=== PATIENT | male | born 1995 | race Caucasian/White ===

== ENCOUNTER 2017-03-27 16:12 | Emergency (ER) | payer OTHER ==
--- NOTE | 2017-03-27 16:57 | RAD ---
INDICATION: Bilateral right greater than left testicular pain. Torsion. COMPARISON: None TECHNIQUE: Duplex interrogation of the scrotum was performed. FINDINGS: Testicles: The testicles are Normal in size and echogenicity. There is no evidence of testicular mass. There is symmetric flow on Doppler interrogation. There is no evidence of torsion.. The right testis measures 5.2 x 2.5 x 3.2 cm and the left 4.9 x 2.1 x 3.1 cm. There is symmetric flow on Doppler interrogation. Epididymides: There is no evidence of an epididymal mass. The epididymides are normal in size. There is symmetric flow on Doppler interrogation. The right epididymal head measures 1.0 x 0.9 cm and the left 1.0 x 1.5 cm. Hydroceles: Small bilateral. Varicoceles: None. Other: None. IMPRESSION: NO EVIDENCE OF TESTICULAR MASS OR TORSION.
[2017-03-27 17:10] LABS: Urine Bilirubin Negative (Negative); Urine Glucose Negative (Negative); Urine Nitrite Negative (Negative)
[2017-03-27] MEDS ORDERED: cefTRIAXone VIAL(*) 250 MG VIAL IM ONE (18:17)
[2017-03-27] MEDS ORDERED: Ketorolac INJ* 60 MG/2 ML VIAL IM ONE (18:17)
[2017-03-27] MEDS ORDERED: Azithromycin TAB* 250 MG PO ONE (18:17)
[2017-03-27 18:33] VITALS: BP 130/69
--- NOTE | 2017-04-13 15:50 | ED ---
Nini More Thomas, scribed for Jimmy Cueto MD on 03/27/17 at 1812 . GI/ HPI - HPI Summary HPI Summary: The pt is a 21 y/o M presenting to the ED c/o testicular pain that began four days ago. The pain is present on both testicles but is greater on the right than the left. The pt rates the pain 4/10. The pain is aggravated by touch and is alleviated by nothing. 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 Pt additionally c/o chills, diarrhea (for a while), lower back pain, and pain on ejaculation. Pt denies fevers, sweats, butt pain, penile drainage, and penile bleeding. He does report new sexual partners recently and he did not use protection. He was tested for STDs with a urine test a week after this new intercourse. The pain felt the worst when he smoked marijuana. PMHx: previously healthy. PSHx: cyst removal. SHx: no smoking, occasional alcohol use, recent marijuana use. - History of Current Complaint Chief Complaint: EDUrogenitalProblems Time Seen by Provider: 03/27/17 18:01 Stated Complaint: TESTICLE PAIN/FROM FIVE STAR Hx Obtained From: Patient Onset/Duration: Started Days Ago - 2, Still Present Timing: Constant Severity: Mild Current Severity: Moderate Pain Intensity: 4 Location of Pain: Other - Testicular pain Associated Signs and Symptoms: Positive: Back Pain - low back pain, Diarrhea - "for a while", Other: - POS: pain on ejaculation, NEG: sweats, butt pain, penile drainage, and penile bleeding. Negative: Fever Additional Signs & Symptoms: Negative: Penile Discharge Aggravating Factor(s): Palpation - as well as marijuana use. Alleviating Factor(s): Nothing - Allergy/Home Medications Allergies/Adverse Reactions: Allergies Allergy/AdvReac Type Severity Reaction Status Date / Time No Known Allergies Allergy Verified 08/29/16 15:33 PMH/Surg Hx/FS Hx/Imm Hx Previously Healthy: Yes Endocrine/Hematology History: Denies: Hx Diabetes Cardiovascular History: Denies: Hx Hypertension, Hx Pacemaker/ICD History: Denies: Hx Dialysis, Hx Renal Disease Sensory History: Denies: Hx Hearing Aid Psychiatric History: Denies: Hx Panic Disorder - Surgical History Surgery Procedure, Year, and Place: CYST REMOVAL LEFT ARM Infectious Disease History: No Infectious Disease History: Denies: Traveled Outside the [place] in Last 30 Days - Family History Known Family History: Positive: Other - POS: kidney stones - Social History Alcohol Use: Occasionally Substance Use Type: Reports: Marijuana Substance Use Comment - Amount & Last Used: weekly Hx Tobacco Use: No Smoking Status (MU): Never Smoked Tobacco Review of Systems Positive: Chills. Negative: Fever, Other - NEG: sweats Negative: Erythema - eyes Negative: Sore Throat Negative: Chest Pain Negative: Shortness Of Breath, Cough Positive: Diarrhea. Negative: Abdominal Pain, Vomiting, Nausea Positive: other - POS: pain on ejactulation; NEG: penile drainage, penile bleeding. Negative: dysuria, hematuria Positive: Other - POS: lower back pain. Negative: Myalgia, Edema - leg Negative: Rash Neurological: Other - NEG: dizziness All Other Systems Reviewed And Are Negative: Yes Physical Exam - Summary Physical Exam Summary: Constitutional: Well-developed, Well-nourished, Alert. (-) Distressed Skin: Warm, Dry HENT: Normocephalic; Atraumatic Eyes: Conjunctiva normal Neck: Musculoskeletal ROM normal neck. (-) JVD, (-) Stridor, (-) Tracheal deviation Cardio: Rhythm regular, rate normal, Heart sounds normal; Intact distal pulses; The pedal pulses are 2+ and symmetric. Radial pulses are 2+ and symmetric. (-) Murmur Pulmonary/Chest wall: Effort normal. (-) Respiratory distress, (-) Wheezes, (-) Rales Abd: Soft, (-) Tenderness, (-) Distension, (-) Guarding, (-) Rebound Musculoskeletal: (-) Edema Lymph: (-) Cervical adenopathy Neuro: Alert, Oriented x3 Psych: Mood and affect Normal Genital: There is a normal scrotum and testes. Nontender to palpation. They have vertical lie. Positive cremasteric reflex is intact. Triage Information Reviewed: Yes Vital Signs On Initial Exam: Initial Vitals Temp Pulse Resp BP Pulse Ox 98.8 F 76 16 135/68 100 03/27/17 16:14 03/27/17 16:14 03/27/17 16:14 03/27/17 16:14 03/27/17 16:14 Vital Signs Reviewed: Yes - [place] Coma Scale Coma Scale Total: 14 Diagnostics - Vital Signs Vital Signs Temp Pulse Resp BP Pulse Ox 03/27/17 16:14 98.8 F 76 16 135/68 100 - Laboratory Lab Results: Lab Results 03/27/17 Range/Units 16:53 Urine Color Yellow Urine Appearance Clear Urine pH 5.0 (5-9) Ur Specific [place] 1.029 (1.010-1.030) Urine Protein Negative (Negative) Urine Ketones Negative (Negative) Urine Blood Negative (Negative) Urine Nitrate Negative (Negative) Urine Bilirubin Negative (Negative) Urine Urobilinogen Negative (Negative) Ur Leukocyte Esterase Negative (Negative) Urine Glucose Negative (Negative) Urine Ascorbic Acid * H (Negative) Lab Statement: Any lab studies that have been ordered have been reviewed, and results considered in the medical decision making process. - Additional Comments Diagnostic Additional Comments: Testicular US. Interpreted by radiologist. Impression: no evidence for testicular mass or torsion. GIGU Course/Dx - Course Assessment/Plan: The pt is a 21 y/o M presenting to the ED c/o testicular pain that began four days ago. The pain is present on both testicles but is greater on the right than the left. The pt rates the pain 4/10. The pain is aggravated by touch and is alleviated by nothing. 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 Pt additionally c/o chills, diarrhea (for a while), lower back pain, and pain on ejaculation. Pt denies fevers, sweats, butt pain, penile drainage, and penile bleeding. He does report new sexual partners recently and he did not use protection. He was tested for STDs with a urine test a week after this new intercourse. The pain felt the worst when he smoked marijuana. PMHx: previously healthy. PSHx: cyst removal. SHx: no smoking, occasional alcohol use, recent marijuana use. Testicular US. Interpreted by radiologist. Impression: no evidence for testicular mass or torsion. UA was negative. We educated him about the possible viral cause including mumps, although he does not have any parotid swelling. He is diagnosed with painful ejaculation and testicle pain. He will be discharged home with follow up at [facility] or local urology. - Diagnoses Provider Diagnoses: Painful ejaculation, Testicle pain Discharge - Discharge Plan Condition: Stable Disposition: HOME Patient Education Materials: Testicle Pain (ED) Forms: *School Release Referrals: Rashawn Sinha MD [Medical Doctor] - If Needed Andrea Whitmore MD [Medical Doctor] - [facility] [Medical Doctor] - 3 Days Additional Instructions: Take Tylenol and Motrin as needed for the pain. Also, use a heating pad. Follow up with [facility] in 2-[address] Sinha and Dr. Whitmore are urologists. I suggested that you follow up with [facility], but alternatively you could follow up with them. Return to the emergency department for any new or worsening symptoms. The documentation as recorded by the Nini brown Thomas accurately reflects the service I personally performed and the decisions made by me, Jimmy Cueto MD.
== END 2017-03-27 18:50 | disposition home or self-care (01) ==
LOC: ED 16:12
DX: N53.12 Painful ejaculation (principal); N50.812 Left testicular pain; N50.811 Right testicular pain
CPT/HCPCS: 76870; 81003; 96372; 99282; A9270-GY; J0696; J1885

== ENCOUNTER 2017-11-27 19:34 | Emergency (ER) | payer OTHER ==
--- NOTE | 2017-11-27 21:05 | RAD ---
INDICATION: Cough and fever COMPARISON: None TECHNIQUE: PA and lateral dual-energy views were obtained. FINDINGS: Bones/Soft Tissues: There are no acute bony findings. Cardiomediastinal: The cardiomediastinal silhouette is normal. Lungs: There are no infiltrates. Pleura: There are no pleural effusions. Other: None IMPRESSION: NORMAL CHEST.
[2017-11-27 21:45] VITALS: BP 118/69
--- NOTE | 2017-11-28 02:46 | ED ---
Khanh More Sixian, scribed for Harinder Fitzgerald MD on 11/27/17 at 2019 . GI/ HPI - HPI Summary HPI Summary: This patient is a 22 year old M presenting to ED with a chief complaint of flu urogenital complaints since a few weeks ago. The CC is described as intermittent stabbing pain between his testes and rectum, max. 1-2 times/day. The patient rates the pain 0/10 in severity. Symptoms aggravated and alleviated by nothing. Patient reports sore throat, blood in mucous, trouble ambulating due to fatigue, coughing, fever, intermittent back pain, and no appetite. Patient denies SOB, abdominal pain, testicular pain, and dysuria. The pt reported playing beer pong with strangers and bronchitis last week. In the past the pt was involved with strenuous physical exercise but was not able eating properly. - History of Current Complaint Chief Complaint: EDUrogenitalProblems Time Seen by Provider: 11/27/17 19:57 Stated Complaint: PAIN IN PERINEAL AREA Hx Obtained From: Patient Onset/Duration: Started Weeks Ago, Still Present Timing: Intermittent Current Severity: None Pain Intensity: 0 Associated Signs and Symptoms: Positive: Other: - Patient reports sore throat, blood in mucous, trouble ambulating due to fatigue, coughing, fever, intermittent back pain, and no appetite. Patient denies SOB, abdominal pain, testicular pain, and dysuria. Aggravating Factor(s): Nothing Alleviating Factor(s): Nothing - Allergy/Home Medications Allergies/Adverse Reactions: Allergies Allergy/AdvReac Type Severity Reaction Status Date / Time No Known Allergies Allergy Verified 08/08/17 14:21 Home Medications: Home Medications Benzonatate CAP* [Tessalon 100 MG CAP*] 100 mg PO TID PRN 11/27/17 [History Confirmed 11/27/17] PMH/Surg Hx/FS Hx/Imm Hx Endocrine/Hematology History: Denies: Hx Diabetes Cardiovascular History: Denies: Hx Hypertension, Hx Pacemaker/ICD History: Denies: Hx Dialysis, Hx Renal Disease Sensory History: Denies: Hx Hearing Aid Psychiatric History: Denies: Hx Panic Disorder - Surgical History Surgery Procedure, Year, and Place: CYST REMOVAL LEFT ARM Infectious Disease History: No Infectious Disease History: Denies: Traveled Outside the [place] in Last 30 Days - Family History Known Family History: Positive: Other - POS: kidney stones - Social History Alcohol Use: Occasionally Substance Use Type: Reports: Marijuana Substance Use Comment - Amount & Last Used: weekly Hx Tobacco Use: No Smoking Status (MU): Never Smoked Tobacco Review of Systems Positive: Fever, Fatigue, Other - no appetite Positive: Sore Throat Positive: Cough. Negative: Shortness Of Breath Negative: Abdominal Pain Genitourinary: Negative - testicular pain Negative: dysuria Positive: Other - intermittent back pain All Other Systems Reviewed And Are Negative: Yes Physical Exam - Summary Physical Exam Summary: Appearance: Well-appearing, Well-nourished, lying in bed comfortably Skin: Warm, dry, no obvious rash Eyes: sclera anicteric, no conjunctiva pallor ENT: mucous membranes moist, pharynx appears normal Neck: Supple, nontender Respiratory: Clear to auscultation, no signs of respiratory distress. No pharyngitis Cardiovascular: Normal S1, S2. No murmurs. Normal distal pulses in tibial and radial bilaterally. Heart sounds normal. Abdomen: Soft, nontender, normal active bowel sounds present Musculoskeletal: Normal, Strength/ROM Intact Neurological: A&Ox3, awake and alert, mentation is normal, speech is fluent and appropriate Psychiatric: affect is normal, does not appear anxious or depressed GIGU: No masses, no abscess Triage Information Reviewed: Yes Vital Signs On Initial Exam: Initial Vitals Temp Pulse Resp BP Pulse Ox 97.6 F 98 16 136/77 99 11/27/17 19:37 11/27/17 19:37 11/27/17 19:37 11/27/17 19:37 11/27/17 19:37 Vital Signs Reviewed: Yes Diagnostics - Vital Signs Vital Signs Temp Pulse Resp BP Pulse Ox 11/27/17 19:37 97.6 F 98 16 136/77 99 - Laboratory Lab Statement: Any lab studies that have been ordered have been reviewed, and results considered in the medical decision making process. - Radiology CXR Radiology Interpretation Completed By: Radiologist - NORMAL CHEST. ED physician has reviewed this radiology report. GIGU Course/Dx - Diagnoses Differential Diagnoses - Male: Neoplasm, Pneumonia, Pruitis Ani, STD Provider Diagnoses: Bronchitis, Perineal pain in male Discharge - Sign-Out/Discharge Documenting (check all that apply): Discharge/Admit/Transfer - Discharge Plan Condition: Good Disposition: HOME Prescriptions: Azithromycin TAB* [Zithromax TAB (Z-SOTERO) 250 mg #6 tabs] 2 tab PO .TODAY, THEN 1 DAILY #1 sotero Patient Education Materials: Acute Bronchitis (ED) Referrals: [facility] - Riaz STRAUSS [Primary Care Provider] - Juan Valdez [Medical Doctor] - Additional Instructions: RETURN TO THE EMERGENCY DEPARTMENT FOR CHANGING OR WORSENING SYMPTOMS. If the perineal pain you have been having is worsening, or if it doesn't resolve over the next couple of weeks, you should have one of the urologists see you. They may wish to order some tests, but it is best if the specialist directs the workup. - Billing Disposition and Condition Condition: GOOD Disposition: HOME The documentation as recorded by the Khanh brown Sixian accurately reflects the service I personally performed and the decisions made by me, Harinder Fitzgerald MD.
== END 2017-11-27 21:44 | disposition home or self-care (01) ==
LOC: ED 19:34
DX: J40 Bronchitis, not specified as acute or chronic (principal); R10.2 Pelvic and perineal pain
CPT/HCPCS: 71046; 99281